=== PATIENT | male | born 1935 | race Caucasian/White ===

== ENCOUNTER → 2016-07-09 | Outpatient (CLI) | payer OTHER, BC ==
[~2016-07-09] MED LIST: ACTONEL35 MG PO; CALCIUM 600 +1 EA12 PO; CALCIUM 600 +1 EAC9 PO; COUMADIN2.5 MG PO; COUMADIN5 MG PO; COUMADIN7.5 MG PO; DIGOX250 MCG PO; FLOMAX0.4 MG PO; KEFLEX500 MG PO; KLOR-CON SPRIN10 MEQ PO; LANOXIN125 MCG PO; LEVOFLOXACIN750 MG PO; MAXIPIME2 GM IM; OCUVITE TABLET1 EACH PO; PRILOSEC20 MG PO; PRILOSEC40 MG PO; TOPROL XL25 MG PO; XANAX0.25 MG PO; XARELTO20 MG PO
== END | disposition home or self-care (01) ==
LOC: AMB 08:28
PROC: 0HB1XZZ Excision of Face Skin, External Approach (ICD-10-PCS; principal; 2016-07-09)
DX: L82.1 Other seborrheic keratosis (principal); Z85.820 Personal history of malignant melanoma of skin; Z85.828 Personal history of other malignant neoplasm of skin
CPT/HCPCS: 88305

== ENCOUNTER → 2017-11-04 | Outpatient (CLI) | payer OTHER, BC | END | disposition home or self-care (01) | LOC: AMB 08:25 | DX: L72.0 Epidermal cyst (principal); L98.8 Other specified disorders of the skin and subcutaneous tissue | CPT/HCPCS: 88304 ==